=== PATIENT | male | born 1960 | race American Indian/Alaskan Native ===

== ENCOUNTER 2016-12-01 16:32 | Emergency (ER) | payer OTHER ==
[~2016-12-01] VITALS: Ht 198.1 cm; Wt 93.0 kg
[2016-12-01 16:58] VITALS: TEMP 98.1
[2016-12-01 17:47] LABS: PLATELET COUNT 176 K/uL (142-355)
[2016-12-01 18:00] LABS: POTASSIUM 4.2 mmol/L (3.6-5.2)
[2016-12-01 18:28] VITALS: BP 106/84
== END 2016-12-01 18:29 | disposition home or self-care (01) ==
LOC: ED 16:32
DX: I48.91 Unspecified atrial fibrillation (principal); K74.60 Unspecified cirrhosis of liver; F14.10 Cocaine abuse, uncomplicated; I50.9 Heart failure, unspecified; N04.9 Nephrotic syndrome with unspecified morphologic changes
CPT/HCPCS: 36415; 80053; 80307; 81000; 82150; 83690; 83880; 85027; 93005; 96361; 96374; 99284; G0479; J1940